=== PATIENT | male | born 1930 | race Caucasian/White ===

== ENCOUNTER 2020-03-07 17:05 | Inpatient (IN) | payer MEDICARE, BC ==
[2020-03-08] MEDS: traMADol HCl 50 MG TAB PO SCH ×3 (00:25→12:02)
--- NOTE | 2020-03-08 01:37 | HP ---
PRIMARY CARE PHYSICIAN: Orthopedics, Dr. Serrato. CHIEF COMPLAINT: [facility] for a skilled rehab after recent hospitalization for hip surgery. HISTORY OF PRESENT ILLNESS AND HOSPITAL COURSE: Mr. Leiva is an 89-year-old male with no significant past medical history per report except for dementia per spouse. He presented initially to [facility] for a ground level fall at his home on 03/04/2020. The patient was found to have right femoral neck fracture on further evaluation. The patient underwent right hip hemiarthroplasty on 03/05/[address] Serrato. Postoperative complications include some urinary retention requiring in and out catheter and then a Palacios catheter was placed. Also, the patient was found to have an enlarged prostate so he was started on Tamsulosin. he was also started on diuretic for leg swelling noted during this hospitalization. Overall postoperative pain was reported well controlled prior to discharge. There was a bowel movement reported postoperatively per record. Per spouse she was required to stay with patient in the room at night as a sitter, as patient was reported to have confusions, agitation notably late afternoon to nighttime. The patient was subsequently transferred to [facility] for skilled rehab. The patient reported baseline functional status:. The patient does use a cane to ambulate per spouse. PAST MEDICAL HISTORY: As above. PAST SURGICAL HISTORY: Back surgery, cholecystectomy, right shoulder and right elbow surgery. ALLERGIES: NO KNOWN ALLERGIES. MEDICATIONS: 1. Tramadol 50 mg p.o. q.6. 2. Tamsulosin 0.4 mg p.o. daily. 3. MiraLAX 17 g p.o. daily. 4. Protonix 40 mg p.o. daily. 5. Lasix 40 mg p.o. daily for leg swelling. 6. Aspirin 81 mg b.i.d. for VTE prophylaxis for 30 days. 7. Tylenol 1000 mg p.o. q.6 hours. 8. Flexeril 5 mg p.o. three times a day p.r.n. for muscle spasm. SOCIAL HISTORY: The patient lives with his spouse, who serves as the primary residential carpenter. Denies smoking history. There was an occasional alcohol use reported. No illicit drug use. ALLERGIES: NO KNOWN DRUG ALLERGIES. REVIEW OF SYSTEMS: Unobtainable secondary to dementia. PHYSICAL EXAMINATION: VITAL SIGNS: Blood pressure 151/70, temp 98.1, pulse 75, respirations 20, O2 sats 95% on room air. Weight 166 pounds, height 5 feet 11 inches. GENERAL: The patient is awake, alert, oriented to his name only, was confused. Not able to contribute to his history, was comfortable in bed, interactive, in no acute distress. HEENT: Normocephalic, atraumatic. PERRL. Intact EOM. Anicteric sclerae. Oral mucosa is moist. NECK: Supple. No LAD. Full range of motion, C-spine. No swelling. CHEST: Normal excursion. Nonlabored breathing. LUNGS: Clear to auscultation bilaterally. CARDIAC: RRR. Normal S1 and S2. ABDOMEN: Flat, soft. Normoactive bowel sounds. Nondistended, nontender. No rebound or guarding. Negative CVA tenderness bilaterally. EXTREMITIES: No edema. No cyanosis. SKIN: Postoperative site in the right lateral hip/femur is dry, intact. No sutures in place. No erythema. No drainage. No surrounding edema. No signs of infection. NEUROLOGIC: Nonfocal. Gait, unsteady. PSYCH: Calm, cooperative, answers simple questions with appropriateness, spontaneous speech. LABORATORY STUDIES: Baseline labs 03/04/2020, hemoglobin 15, hematocrit 43.8, platelets 170. 03/07/2020, hemoglobin 12.1, hematocrit 36.9, platelets 154. Chemistry 03/07/2020; sodium 138, potassium 3.7, BUN 19, creatinine 0.84, calcium 8.1, magnesium 1.8. Preop screen lab: COVID-19, negative on 03/04/2020, ASSESSMENT: 1. Physical deconditioning. 2. Status post right hemiarthroplasty secondary to fracture of the right femur. 3. Ground level fall at home. 4. Urinary retention requiring insertion of indwelling catheter. 5. Bilateral lobe edema. 6. Prostate enlargement. 7. Postoperative anemia. 8. Unsteady gait. 9. At risk for fall. 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 PLAN: 1. The patient is admitted to Med/Surg for skilled rehab. 2. PT/OT eval and treat. 3. Weightbearing as tolerated. 4. Continue all current medications as modified per list. 5. Diet: Regular. 6. Bladder training for 48-72 hours, then foleycath removal. 7. GI prophylaxis with PPI. DVT prophylaxis with aspirin. 8. Followup with Dr Serrato in 2 weeks or as recommended. 9. Further recommendations depending on the hospital course. 10. Estimated length of stay, 2 to 3 weeks. 11. Code status, DNAR as confirmed by spouse on the phone, who acts as the surrogate decision maker. Job ID: [id number] MTDD
[2020-03-08] MEDS: Acetaminophen 500 MG TAB PO SCH ×4 (03:00→21:01)
[2020-03-08] MEDS: Tamsulosin HCl 0.4 MG CAP PO SCH (08:14)
[2020-03-08] MEDS: Aspirin 81 mg Enteric Coated Tablet PO SCH ×2 (08:14→21:01)
[2020-03-08] MEDS: Furosemide 40 MG TAB PO SCH (08:15)
[2020-03-08] MEDS: Polyethylene Glycol 3350 17 GM Packet PO SCH (08:15)
[2020-03-08] MEDS ORDERED: traMADol HCl 50 MG TAB PO PRN (13:17)
[2020-03-09] MEDS: Cyclobenzaprine 10 MG TAB PO PRN ×2 (01:12→20:02)
[2020-03-09] MEDS: Acetaminophen 500 MG TAB PO SCH ×4 (03:30→20:01)
[2020-03-09] MEDS: Furosemide 40 MG TAB PO SCH (08:17)
[2020-03-09] MEDS: Tamsulosin HCl 0.4 MG CAP PO SCH (08:17)
[2020-03-09] MEDS: Aspirin 81 mg Enteric Coated Tablet PO SCH ×2 (08:17→20:01)
[2020-03-09] MEDS: Polyethylene Glycol 3350 17 GM Packet PO SCH (08:18)
[2020-03-10] MEDS: Acetaminophen 500 MG TAB PO SCH ×4 (03:25→20:20)
[2020-03-10] MEDS: Ibuprofen 200 MG TAB PO PRN (03:25)
[2020-03-10] MEDS: Furosemide 40 MG TAB PO SCH (08:29)
[2020-03-10] MEDS: Tamsulosin HCl 0.4 MG CAP PO SCH (08:29)
[2020-03-10] MEDS: Aspirin 81 mg Enteric Coated Tablet PO SCH ×2 (08:29→20:19)
[2020-03-10] MEDS: Polyethylene Glycol 3350 17 GM Packet PO SCH (08:29)
[2020-03-10] MEDS: Cyclobenzaprine 10 MG TAB PO PRN (20:20)
[2020-03-11] MEDS: Acetaminophen 500 MG TAB PO SCH ×4 (03:10→20:17)
[2020-03-11] MEDS: Polyethylene Glycol 3350 17 GM Packet PO SCH (08:04)
[2020-03-11] MEDS: Furosemide 40 MG TAB PO SCH (08:04)
[2020-03-11] MEDS: Aspirin 81 mg Enteric Coated Tablet PO SCH ×2 (08:04→20:18)
[2020-03-11] MEDS: Tamsulosin HCl 0.4 MG CAP PO SCH (08:04)
[2020-03-11 12:39] LABS: Bilirubin Negative (Negative); Blood, Urine Large (Negative); Glucose, Urine (Dipstick) Negative (Negative); Ketone, Urine Negative (Negative); Leukocyte Moderate (Negative); Nitrite Negative (Negative); Protein, Urine (Dipstick) Negative (Neg-Trace); Specific Gravity, Urine 1.015 (1.005-1.030)
[2020-03-11 12:40] LABS: Clarity Cloudy (Clear)
[2020-03-11 12:47] LABS: Bacteria/HPF 2+ HPF (None Seen); Crystals/HPF 1+ CA OXALATE HPF (Negative); Squamous Epithelial 0-3 HPF (0-3); WBC/HPF Greater Than 50 HPF (0-3)
[2020-03-11 12:48] LABS: Urine Culture Reflex Yes Yes
[2020-03-11] MEDS ORDERED: Metamucil PACK PO SCH (14:15)
--- NOTE | 2020-03-11 16:22 | CT ---
CT ABDOMEN AND PELVIS WITHOUT CONTRAST: Date: 03/11/2020 HISTORY: Low mid abdominal pain and constipation. Recent hip replacement. COMPARISON: None. FINDINGS: Absence of oral and IV contrast reduces the sensitivity of exam, particularly for evaluation of solid organs and bowel. There are mild dependent changes in the lung bases. There is a moderate sized hiatal hernia. The chikis ent is post cholecystectomy. No free air or free fluid is seen in the abdomen or pelvis. No calculi s een in the kidneys, ureters, or urinary bladder. No hydroureteronephrosis seen on either side. There is a small amount of free air in the urinary bladder, likely from recent instrumentation. The small bowel loops are not abnormally dilated. A normal appearing appendix is present. There is fe gabino material in the left colon. There are vascular calcifications without evidence of aneurysmal dila tation of the abdominal aorta. The prostate is enlarged. There are degenerative changes in the spine. There are postop changes of right hip arthroplasty. IMPRESSION: 1. No CT evidence of urinary tract calculi/obstruction or bowel obstruction. 2. Moderate sized hiatal hernia. POS: JOANA
[2020-03-11] MEDS: Cipro 250 MG TAB PO SCH (20:17)
[2020-03-11] MEDS: Cyclobenzaprine 10 MG TAB PO PRN (21:01)
[2020-03-12] MEDS: Ibuprofen 200 MG TAB PO PRN (01:49)
[2020-03-12] MEDS: Acetaminophen 500 MG TAB PO SCH ×4 (03:29→21:28)
[2020-03-12] MEDS: Cipro 250 MG TAB PO SCH ×2 (05:39→21:28)
[2020-03-12] MEDS: Furosemide 40 MG TAB PO SCH (08:10)
[2020-03-12] MEDS: Tamsulosin HCl 0.4 MG CAP PO SCH (08:10)
[2020-03-12] MEDS: Ferrous Sulfate 325 MG TAB PO SCH (08:10)
[2020-03-12] MEDS: Metamucil PACK PO SCH (08:10)
[2020-03-12] MEDS: Aspirin 81 mg Enteric Coated Tablet PO SCH ×2 (08:10→21:28)
[2020-03-12] MEDS: Cyclobenzaprine 10 MG TAB PO PRN (21:32)
[2020-03-13] MEDS: Acetaminophen 500 MG TAB PO SCH ×4 (03:00→21:07)
[2020-03-13 05:54] LABS: #Eosinphils 0.7 thou/uL (0.0-0.7); #Lymphocytes 1.5 thou/uL (1.20-3.40); #Monocytes 0.6 thou/uL (0.11-0.59); #Neutrophils 3.8 thou/uL (1.40-6.50); %Basophils 0.8 % (0.0-1.0); %Eosinophils 10.4 % (0.0-10.0); %Lymphocytes 22.1 % (21.0-51.0); %Monocytes 8.6 % (0.0-10.0); %Neutrophils 58.1 % (42.0-75.0); Hemoglobin 11.9 g/dL (14.0-18.0); Mean Corpuscular HGB CONC 32.9 g/dL (32.0-36.0); Mean Corpuscular Hemoglobin 27.6 pg (27.0-31.0); Mean Corpuscular Volume 83.7 fL (78.0-98.0); Mean Platelet Volume 6.2 fL (7.4-10.4); Platelet Count 252 thou/uL (130-400); RBC Distribution Width 12.1 % (11.5-14.5); Red Blood Cell (RBC) Count 4.33 mill/uL (4.70-6.10); White Blood Cell (WBC) Count 6.5 thou/uL (4.8-10.8)
[2020-03-13 06:05] LABS: Anion Gap 14 mmol/L (10-20); BUN (Urea Nitrogen) 19 mg/dL (8.4-25.7); Calc. Creatinine Clearance 65 mL/min (70-130); Calcium 8.5 mg/dL (7.8-10.44); Carbon Dioxide 25 mmol/L (23-31); Chloride 104 mmol/L (98-107); Estimated GFR-MDRD 86; Glucose 112 mg/dL (83-110); Potassium 3.8 mmol/L (3.5-5.1); Sodium 139 mmol/L (136-145)
[2020-03-13] MEDS: Aspirin 81 mg Enteric Coated Tablet PO SCH ×2 (11:35→21:06)
[2020-03-13] MEDS: Ferrous Sulfate 325 MG TAB PO SCH (11:35)
[2020-03-13] MEDS: Cipro 250 MG TAB PO SCH ×2 (11:35→21:06)
[2020-03-13] MEDS: Furosemide 40 MG TAB PO SCH (11:35)
[2020-03-13] MEDS: Tamsulosin HCl 0.4 MG CAP PO SCH (11:36)
[2020-03-13] MEDS: Metamucil PACK PO SCH (11:36)
[2020-03-13] MEDS: Cyclobenzaprine 10 MG TAB PO PRN (21:06)
[2020-03-14] MEDS: Acetaminophen 500 MG TAB PO SCH ×4 (03:30→20:20)
[2020-03-14] MEDS: Cipro 250 MG TAB PO SCH ×2 (05:25→19:30)
[2020-03-14] MEDS: Tamsulosin HCl 0.4 MG CAP PO SCH (08:21)
[2020-03-14] MEDS: Aspirin 81 mg Enteric Coated Tablet PO SCH ×2 (08:21→20:20)
[2020-03-14] MEDS: Ferrous Sulfate 325 MG TAB PO SCH (08:21)
[2020-03-14] MEDS: Furosemide 40 MG TAB PO SCH (08:21)
[2020-03-14] MEDS: Metamucil PACK PO SCH (08:21)
[2020-03-14] MEDS: Ibuprofen 200 MG TAB PO PRN (18:04)
[2020-03-15] MEDS: Acetaminophen 500 MG TAB PO SCH ×4 (03:22→20:47)
[2020-03-15] MEDS: Cipro 250 MG TAB PO SCH ×2 (06:09→20:48)
[2020-03-15] MEDS: Furosemide 40 MG TAB PO SCH (08:01)
[2020-03-15] MEDS: Ferrous Sulfate 325 MG TAB PO SCH (08:01)
[2020-03-15] MEDS: Aspirin 81 mg Enteric Coated Tablet PO SCH ×2 (08:02→20:47)
[2020-03-15] MEDS: Metamucil PACK PO SCH (08:02)
[2020-03-15] MEDS: Tamsulosin HCl 0.4 MG CAP PO SCH (08:22)
[2020-03-16] MEDS: Acetaminophen 500 MG TAB PO SCH ×4 (02:23→20:10)
[2020-03-16] MEDS: Cipro 250 MG TAB PO SCH ×2 (05:03→20:10)
[2020-03-16] MEDS: Finasteride 5 MG TAB PO SCH (08:28)
[2020-03-16] MEDS: Ferrous Sulfate 325 MG TAB PO SCH (08:28)
[2020-03-16] MEDS: Furosemide 40 MG TAB PO SCH (08:28)
[2020-03-16] MEDS: Aspirin 81 mg Enteric Coated Tablet PO SCH ×2 (08:28→20:11)
[2020-03-16] MEDS: Metamucil PACK PO SCH (08:29)
[2020-03-16] MEDS: Tamsulosin HCl 0.4 MG CAP PO SCH (20:11)
[2020-03-17] MEDS: Acetaminophen 500 MG TAB PO SCH ×4 (03:51→20:17)
[2020-03-17] MEDS: Cipro 250 MG TAB PO SCH ×2 (06:02→20:20)
[2020-03-17] MEDS: Ferrous Sulfate 325 MG TAB PO SCH (08:24)
[2020-03-17] MEDS: Aspirin 81 mg Enteric Coated Tablet PO SCH ×2 (08:24→20:17)
[2020-03-17] MEDS: Furosemide 40 MG TAB PO SCH (08:24)
[2020-03-17] MEDS: Finasteride 5 MG TAB PO SCH (08:24)
[2020-03-17] MEDS: Ibuprofen 200 MG TAB PO PRN ×2 (08:24→20:17)
[2020-03-17] MEDS: Metamucil PACK PO SCH (08:25)
[2020-03-17] MEDS: Tamsulosin HCl 0.4 MG CAP PO SCH (20:17)
[2020-03-18] MEDS: Acetaminophen 500 MG TAB PO SCH ×4 (04:23→20:32)
[2020-03-18] MEDS: Cipro 250 MG TAB PO SCH (06:03)
[2020-03-18] MEDS: Aspirin 81 mg Enteric Coated Tablet PO SCH ×2 (08:17→20:33)
[2020-03-18] MEDS: Finasteride 5 MG TAB PO SCH (08:17)
[2020-03-18] MEDS: Ferrous Sulfate 325 MG TAB PO SCH (08:18)
[2020-03-18] MEDS: Metamucil PACK PO SCH (08:18)
[2020-03-18] MEDS: Furosemide 40 MG TAB PO SCH (08:18)
[2020-03-18] MEDS: Tamsulosin HCl 0.4 MG CAP PO SCH (20:33)
[2020-03-19] MEDS: Acetaminophen 500 MG TAB PO SCH ×3 (04:01→15:31)
[2020-03-19] MEDS: Ibuprofen 200 MG TAB PO PRN (04:47)
[2020-03-19] MEDS: Furosemide 40 MG TAB PO SCH (08:04)
[2020-03-19] MEDS: Finasteride 5 MG TAB PO SCH (08:04)
[2020-03-19] MEDS: Ferrous Sulfate 325 MG TAB PO SCH (08:04)
[2020-03-19] MEDS: Aspirin 81 mg Enteric Coated Tablet PO SCH ×2 (08:04→20:23)
[2020-03-19] MEDS: Metamucil PACK PO SCH (08:05)
[2020-03-19] MEDS ORDERED: Acetaminophen 325 MG TAB PO PRN (17:29)
[2020-03-19] MEDS: Tamsulosin HCl 0.4 MG CAP PO SCH (20:23)
[2020-03-20] MEDS: Ibuprofen 200 MG TAB PO PRN (05:23)
[2020-03-20] MEDS: Furosemide 40 MG TAB PO SCH (08:17)
[2020-03-20] MEDS: Ferrous Sulfate 325 MG TAB PO SCH (08:17)
[2020-03-20] MEDS: Metamucil PACK PO SCH (08:17)
[2020-03-20] MEDS: Aspirin 81 mg Enteric Coated Tablet PO SCH ×2 (08:17→20:24)
[2020-03-20] MEDS: Finasteride 5 MG TAB PO SCH (08:17)
--- NOTE | 2020-03-20 15:19 | RAD ---
EXAM: 2 views of the right femur HISTORY: Hip pain COMPARISON: 03/04/2020 FINDINGS: The patient has a right hip prosthesis without perihardware lucency or fracture. There is n o evidence of acute fracture or dislocation. Moderate diffuse soft tissue swelling is seen. Moderate degenerative changes are seen in the knee. IMPRESSION: No evidence of acute osseous abnormality.
--- NOTE | 2020-03-20 15:20 | RAD ---
EXAM: 2 views of the bilateral hips HISTORY: Bilateral hip pain COMPARISON: None FINDINGS: 2 views of the bilateral hips shows no evidence of acute fracture or dislocation. The patie nt has a right hip prosthesis without perihardware lucency or fracture. No degenerative changes are seen. Moderate right thigh soft tissue swelling is present. IMPRESSION: No evidence of acute osseous abnormality.
--- NOTE | 2020-03-20 15:21 | RAD ---
Exam: Single view of the pelvis HISTORY: Pelvic and hip pain COMPARISON: 03/05/2020 FINDINGS: A single view the pelvis shows no evidence of acute fracture or dislocation. The patient laurent s a right hip prosthesis without perihardware lucency. No degenerative changes seen in the left hip. Degenerative changes are seen in the lumbar spine. IMPRESSION: No evidence of acute osseous abnormality.
[2020-03-20] MEDS: Tamsulosin HCl 0.4 MG CAP PO SCH (20:25)
[2020-03-21] MEDS: Ferrous Sulfate 325 MG TAB PO SCH (09:41)
[2020-03-21] MEDS: Aspirin 81 mg Enteric Coated Tablet PO SCH ×2 (09:41→21:43)
[2020-03-21] MEDS: Furosemide 40 MG TAB PO SCH (09:42)
[2020-03-21] MEDS: Finasteride 5 MG TAB PO SCH (09:42)
[2020-03-21] MEDS: Metamucil PACK PO SCH (09:43)
[2020-03-21 13:04] VITALS: BMI 26.5
[2020-03-21] MEDS: Ibuprofen 200 MG TAB PO PRN (21:43)
[2020-03-21] MEDS: Tamsulosin HCl 0.4 MG CAP PO SCH (21:43)
[2020-03-22] MEDS: Metamucil PACK PO SCH (08:05)
[2020-03-22] MEDS: Finasteride 5 MG TAB PO SCH (08:05)
[2020-03-22] MEDS: Furosemide 40 MG TAB PO SCH (08:05)
[2020-03-22] MEDS: Ferrous Sulfate 325 MG TAB PO SCH (08:05)
[2020-03-22] MEDS: Aspirin 81 mg Enteric Coated Tablet PO SCH (08:05)
[2020-03-22 08:20] VITALS: BP 125/70; TEMP 97.9
[2020-03-22] MEDS ORDERED: Tamsulosin HCl 0.4 MG CAP PO SCH (21:00)
[2020-03-23] MEDS ORDERED: Finasteride 5 MG TAB PO SCH (09:00)
--- NOTE | 2020-03-26 14:50 | DIS ---
DATE OF ADMISSION: 03/07/2020 DATE OF DISCHARGE: 03/22/2020 REASON FOR ADMISSION: [facility] for skilled rehab after a recent hip surgery. PRIMARY CARE PHYSICIAN: In [place], [place]. DIAGNOSES: 1. Physical deconditioning. 2. General weakness. 3. Status post right hemiarthroplasty secondary to closed fracture of the right femur. 4. Postoperative anemia.. 5. Ground level fall at home. 6. Benign prostatic hypertrophy with obstructive symptoms. 7. Urinary retention requiring insertion and removal of indwelling Palacios catheter, resolved. 8. Bilateral leg edema.. 9. Unsteady gait. 10. Alzheimer dementia, late onset. 11. Senile dementia with behavioral disturbances. 12. At risk for fall. DISPOSITION: Home with . CONDITION ON DISCHARGE: Stable. DISCHARGE INSTRUCTIONS: 1. Diet, regular. Activity, to use rolling walker at all times. The patient is at risk for fall. 2. Follow up with PCP in 1 week. 3. Follow up with Dr. Serrato on March 28 or as previously scheduled. HISTORY OF PRESENT ILLNESS AND HOSPITAL COURSE: Mr. Leiva is an 89-year-old male who had a fall at home on 03/04/2020, and was sent to [facility]. He was found to have right femoral neck fracture. He underwent right hip hemiarthroplasty on 03/05/[address] Serrato. Postoperative complications include urinary retention, requiring in and out catheter and then Palacios catheterization was placed. He was also found to have an enlarged prostate. Thus, he was started on tamsulosin. Postoperatively, the patient was reported to have bilateral leg swelling and started on diuretic for which he responded very well. Due to severe general weakness and deconditioning, the patient was transferred to [facility] for skilled rehab after recent hip surgery. The patient stayed in rehab with very slow improvement secondary to intermittent confusion with some behavioral disturbances in the form of sundowning and inability to follow instructions well. He was walking 80 feet using rolling walker prior to discharge. He remains very antalgic with decreased balance, endurance, strength with very unsteady gait. On 03/22/2020, the patient was very adamant to go home. had made an arrangement with two other caregivers who would help her at home. She also would like to resume the home health services via [facility]. The patient remains to be at risk for fall prior to discharge, thus highly recommended 24/7 supervision at home. voiced understanding and is comfortable taking care of the patient at home. She will be the primary caregiver. Vital signs prior to discharge; Blood pressure 125/70, temperature 97.9, pulse 83, respirations 15, O2 saturation 93% to 97% on room air. Weight 164 pounds and height 5 feet 5 inches. Patient was examined prior to discharge and was deemed hemodynamically stable to go go home. Recent test prior to discharge, 03/20/2020; X-ray of the pelvis showed no evidence of acute osseous abnormality.. The patient has a right hip prosthesis without jovanni-hardware lucency. No degenerative changes seen in the left. There are degenerative changes seen in the lumbar spine. Hip x-ray showed no acute osseous abnormality. Femur x-ray, no evidence of acute osseous abnormality. Time spent on this discharge, in examining the patient and coordinating care, 32 minutes. Job ID: [id number] [facility]
== END 2020-03-22 14:19 | disposition home health service (06) | DRG 560 ==
LOC: MADMS 17:05
PROVIDERS: ADMIT Family Medicine; ATTEND Family Medicine
DX: Z47.1 Aftercare following joint replacement surgery (principal); F02.81 Dementia in other diseases classified elsewhere, unspecified severity, with behavioral disturbance; R53.81 Other malaise; R33.9 Retention of urine, unspecified; D64.9 Anemia, unspecified; Z66 Do not resuscitate; G30.1 Alzheimer's disease with late onset; R26.81 Unsteadiness on feet; Z90.49 Acquired absence of other specified parts of digestive tract; Z91.81 History of falling; Z98.890 Other specified postprocedural states
CPT/HCPCS: 72170; 73522; 74176; 80048; 81001; 83630; 85025; 87045; 87046; 87077; 87086; 87186; 87324; 87328; 87329; 87427; 87449

== ENCOUNTER 2020-03-28 13:48 | Outpatient (CLI) | payer MEDICARE, BC ==
--- NOTE | 2020-03-28 16:32 | RAD ---
TWO VIEWS RIGHT HIP: Comparison: 03-05-2020 History: ORIF of right hip fracture. FINDINGS: Two views of the right hip shows patient status post right hip arthroplasty without perihardware luce ncy or fracture. Moderate soft tissue swelling is likely secondary to recent surgery. IMPRESSION: Status post right hip arthroplasty without evidence of complication. POS: EAA
== END 2020-03-28 13:49 | disposition home or self-care (01) ==
LOC: MADRAD 13:48
PROVIDERS: ATTEND Orthopaedic Surgery
DX: Z47.1 Aftercare following joint replacement surgery (principal); Z96.641 Presence of right artificial hip joint